=== PATIENT | male | born 1990 | race African-American/Black ===

== ENCOUNTER 2017-11-24 00:09 | Emergency (ER) | payer SELFPAY ==
--- NOTE | 2017-11-24 01:00 | ED Physician Documentation ---
Male Genitourinary Problems - HISTORIAN Historian: patient - HPI Stated Complaint: painful urination Chief Complaint: Male Urogenital Problems Onset: days ago (3-4 days) Duration: continues in ED - Associated Symptoms Problems Urinating: burning w/ urination, pain w/ urination. denies: frequent urination Penile Discharge Descripiton: thick (purulent looking) Testicular Pain: none Testicular Swelling: none Penile Pain: No Penile Swelling: No Inguinal Mass: No - Sexual History Sexual History: unprotected intercourse - ROS CONST: none - PAST HX Past History: other Surgeries/Procedures: none Allergies/Adverse Reactions: Allergies Allergy/AdvReac Type Severity Reaction Status Date / Time No Known Allergies Allergy Verified 11/24/17 00:44 Home Medications: Ambulatory Orders Medication Instructions Recorded NK [NK] 04/19/14 - SOCIAL HX Smoking History: less than 1 pack/day (10/11 ppd) Alcohol Use: occasionally Drug Use: none - FAMILY HX Family History: none - VITAL SIGNS Vital Signs: Vital Signs Temp Pulse Resp BP Pulse Ox 98.1 F 84 16 128/72 99 11/24/17 01:22 11/24/17 01:22 11/24/17 01:22 11/24/17 01:22 11/24/17 01:22 ED Results Lab/Radiology - Orders Orders: ED Orders Category Date Time Status CHLAMYDIA & GONORRHOEAE Routine Lab 11/24/17 Ordered UA [URINALYSIS] Routine Lab 11/24/17 Ordered Azithromycin [Zithromax] Med 11/24/17 01:13 Discontinued 1,000 mg PO .STK-MED ONE Azithromycin [Zithromax] Med 11/24/17 01:12 Discontinued 1,000 mg PO NOW ONE Lidocaine 1% 5ml(IM or SUTURE) [Xylocaine] Med 11/24/17 01:13 Discontinued 50 mg .ROUTE .STK-MED ONE Lidocaine 1% 5ml(IM or SUTURE) [Xylocaine] Med 11/24/17 01:09 Discontinued 50 mg IJ NOW ONE cefTRIAXone SODIUM [Rocephin] Med 11/24/17 01:13 Discontinued 250 mg .ROUTE .STK-MED ONE cefTRIAXone SODIUM [Rocephin] Med 11/24/17 01:08 Discontinued 250 mg IM NOW ONE Male Genitourinary Problems - EXAM General Appearance: no acute distress, alert Genitals: nml inspection, testicles nml palp., urethral discharge, circumcised, examined while standing. No: testicular tenderness, epididymal tenderness, inguinal lymphadenopathy Respiratory: no resp distress. No: wheezes, rales, rhonchi CVS: reg rate & rhythm Neuro/Psych: oriented X3 Skin: warm/dry Discharge Clincal Impression: Urethritis Referrals: Primary Doctor,No [Primary Care Provider] - 2 Days Additional Instructions: Abstain from sex for one week. Use a condom when having sex. If symptoms do not clear up within 5-7 days to follow-up with your primary care provider or return to the ED. Condition: Stable Disposition: 01 HOME, SELF-CARE Decision to Admit: NO Date of Decison to Admit: 11/24/17 Decision Time: 01:14
[2017-11-24] MEDS ORDERED: Lidocaine 1% 5ml(IM or SUTURE)(PAIN CLINIC) IJ ONE (01:09)
[2017-11-24] MEDS ORDERED: AZITHROMYCIN 250 MG TABLET PO ONE ×2 (01:12→01:13)
[2017-11-24] MEDS ORDERED: Lidocaine 1% 5ml(IM or SUTURE)(PAIN CLINIC) ONE (01:13)
[2017-11-24 01:28] VITALS: BP 128/72
[2017-11-24 06:24] LABS: APPEARANCE,URINE CLOUDY (CLEAR); COLOR,URINE YELLOW (YELLOW)
[2017-11-24 06:25] LABS: OCCULT BLOOD,URINE 1+ (NEGATIVE)
== END 2017-11-24 01:22 | disposition home or self-care (01) ==
LOC: ED 00:09
DX: N34.2 Other urethritis (principal)
CPT/HCPCS: 81002; 87086; 87801; J0696; 96372; 99283

== ENCOUNTER 2018-03-21 19:16 | Emergency (ER) | payer OTHER ==
[2018-03-21 19:33] VITALS: BP 118/71
[2018-03-21] MEDS: MAG HYDROX/ALUMINUM HYD/SIMETH 30 ML, Lidocaine 2%Visc 15ml 20 MG, PHENobarb/HYOSCY/ATR... PO ONE ×3 (19:41)
[2018-03-21] MEDS: Lidocaine 2%Visc 15ml 20 MG/ML UDC ONE (19:42)
[2018-03-21] MEDS: MAG HYDROX/ALUMINUM HYD/SIMETH 30 ML UDC PO ONE (19:42)
--- NOTE | 2018-03-21 20:01 | ED Physician Documentation ---
GI Bleed - HPI Stated Complaint: Upper abdominal pain Chief Complaint: GI Bleed Further Comments: yes (27 year old male patient presents with complaint of epigastric pain. States he vomited x 1 this morning. Patient denies any fever , chills, diarrhea. States he has been able to eat and drink today. Last BM at 1400.) - Associated Symptoms Description of Stools: denies: dark stools, maroon, black, tarry, constipation, hard stools, diarrhea, other Abdominal Pain: epigastric, other. denies: none, cramping, aching, burning, mild, moderate, severe, diffuse, RUQ, RLQ, LUQ, LLQ, suprapubic, periumbilical Description of Rectal Bleed: denies: bleeding w/o stools, bright red blood on paper, blood mixed w/ stool, blood streaks on stool, bloody diarrhea, rectal pain, other Other Related Symptoms: denies: nausea, vomiting, back pain, fainting, dizziness , light-headedness, other - ROS CONST: denies: no problems, recent illness, fever, chills, other SKIN/LYMPH: denies: leg swelling, rash, swollen glands, ankle swelling, other CVS/RESP: none GI/: denies: rectal intercourse, problems urinating, testicular pain, foreign body, genital pain, other EYES/ENT: denies: problems with vision, sore throat, nose bleed, other MS: denies: none, calf pain, neck pain, joint pain, leg swelling, rash, swollen glands, leg pain, back pain, ankle swelling, other NEURO/PSYCH: denies: headache, lost feeling, confusion, anxiety, depression, loss of power, other - PAST HX Past History: denies: bleeding disorder Surgeries/Procedures: none Allergies/Adverse Reactions: Allergies Allergy/AdvReac Type Severity Reaction Status Date / Time No Known Allergies Allergy Verified 03/21/18 19:37 Home Medications: Ambulatory Orders Medication Instructions Recorded NK [NK] 04/19/14 - SOCIAL HX Smoking History: non-smoker - FAMILY HX Family History: denies: none - VITAL SIGNS Vital Signs: Vital Signs Temp Pulse Resp BP Pulse Ox 98.8 F 74 16 118/71 96 03/21/18 19:20 03/21/18 19:20 03/21/18 19:20 03/21/18 19:20 03/21/18 19:20 - REVIEWED ASSESSMENTS Nursing Assessment Reviewed: Yes Vitals Reviewed: Yes Progress - Progress Progress: Epigastic pain relieved after GI cocktail. Patient requested work note for today. ED Results Lab/Radiology - Orders Orders: ED Orders Category Date Time Status Lidocaine 2%Visc 15ml [Xylocaine] Med 03/21/18 19:37 Discontinued 600 mg .ROUTE .STK-MED ONE Mag Hydrox/Aluminum Hyd/Simeth [Mylanta] Med 03/21/18 19:37 Discontinued 30 ml PO .STK-MED ONE Mag Hydrox/Aluminum Hyd/Simeth [Mylanta] 30 ml Med 03/21/18 19:33 Discontinued Lidocaine 2%Visc 15ml [Xylocaine] 20 mg PHENobarb/HYOSCY/ATROPINE/SCOP [] 10 ml PO NOW Abdominal Pain Physical Exam - Physical Exam General Appearance: no acute distress RESPIRATORY: no resp distress, chest non-tender, breath sounds normal CVS: reg rate & rhythm, heart sounds normal, equal pulses, no murmur, no gallop , PMI nml, no JVD, no friction rub, 24 ABDOMEN: soft, no organomegaly, normal bowel sounds, no abdominal bruit, no distension, tenderness (epigastric tenderness with palpation; negative Nichole's , no rebound tenderness; negative [place]'s). 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 NEURO: oriented X3, CN's nml as tested, motor nml, sensation nml Vital Signs: Vital Signs Temp Pulse Resp BP Pulse Ox 98.8 F 74 16 118/71 96 03/21/18 19:20 03/21/18 19:20 03/21/18 19:20 03/21/18 19:20 03/21/18 19:20 Discharge Clincal Impression: Epigastric abdominal pain Referrals: Primary Doctor,No [Primary Care Provider] - 2 Days Additional Instructions: Diet: Clear liquids Sprite/7-up Juices apple, white grape Gatorade/Powerade Jello Popsicles When tolerating clear liquids, advance to bland/brat diet - such as crackers, rice, Bananas, apples/applesauce or toast Return to the emergency department or call your doctor, if you are having severe abdominal pain, fever >101.0, or if there is blood in the vomit or diarrhea, or you cannot keep down liquids or solid food. Condition: Stable Disposition: 01 HOME, SELF-CARE Decision to Admit: NO Decision Time: 20:00
== END 2018-03-21 20:10 | disposition home or self-care (01) ==
LOC: ED 19:16
DX: R10.13 Epigastric pain (principal)
CPT/HCPCS: A9270-GY